=== PATIENT | male | born 1965 | race Caucasian/White ===

== ENCOUNTER 2018-12-26 10:27 | Emergency (ER) | payer MEDICAID ==
[~2018-12-26] VITALS: Ht 167.6 cm; Wt 87.9 kg
[2018-12-26] MEDS ORDERED: hydrocodone (10:42)
[2018-12-26] MEDS ORDERED: trazodone (10:42)
[2018-12-26] MEDS ORDERED: omeprazole (10:42)
--- NOTE | 2018-12-26 10:46 | NUR ---
pt to ed for "knot" in left testicle x1-1.5 months that drains occasionally. pt states has appt with pcp, but he is from out of town and pain is too bad. pt connected to monitors. vss. resident assessmet complete. awaiting orders.
[2018-12-26] MEDS ORDERED: LIDOCAINE-MPF 1%, 5ML ONE (10:58)
[2018-12-26] MEDS ORDERED: CEPHALEXIN 500 MG CAPSULE PO ONE (11:00)
[2018-12-26] MEDS ORDERED: LIDOCAINE-MPF 1%, 5ML INFIL ONE (11:00)
[2018-12-26] MEDS ORDERED: SULFAMETH./TRIMETHOPRIM DS 800MG/160MG TABLET PO ONE (11:00)
[2018-12-26] MEDS ORDERED: SULFAMETH./TRIMETHOPRIM DS 800MG/160MG TABLET ONE (11:25)
[2018-12-26] MEDS ORDERED: CEPHALEXIN 500 MG CAPSULE ONE (11:25)
[2018-12-26 11:28] VITALS: BP 151/100
--- NOTE | 2018-12-26 11:29 | NUR ---
pt resting in room .vss. i&d complete. pt medicated per sep. awaiting dispo.
== END 2018-12-26 11:42 | disposition home or self-care (01) ==
LOC: ED 11:36
DX: N49.2 Inflammatory disorders of scrotum (principal); F17.210 Nicotine dependence, cigarettes, uncomplicated; Z88.1 Allergy status to other antibiotic agents
CPT/HCPCS: 55100